=== PATIENT | male | born 1990 | race Caucasian/White ===

== ENCOUNTER 2019-07-19 22:49 | Emergency (ER) | payer OTHER ==
[~2019-07-19] VITALS: Ht 180.3 cm; Wt 81.7 kg
[2019-07-19] MEDS ORDERED: NORCO 5-325 TA1 EAC1 PO (23:25)
[2019-07-19 23:31] VITALS: BP 122/71
== END 2019-07-20 | disposition home or self-care (01) ==
LOC: ER 22:49
DX: S62.314A Displaced fracture of base of fourth metacarpal bone, right hand, initial encounter for closed fracture (principal); F17.210 Nicotine dependence, cigarettes, uncomplicated; W22.01XA Walked into wall, initial encounter; Y92.89 Other specified places as the place of occurrence of the external cause; Y93.89 Activity, other specified; Y99.8 Other external cause status

== ENCOUNTER 2019-11-12 13:50 | Emergency (ER) | payer OTHER ==
[~2019-11-12] VITALS: Ht 180.3 cm; Wt 72.6 kg
[~2019-11-12 13:50] MED LIST: NORCO 5-325 TA1 EAC1 PO
[2019-11-12 13:57] VITALS: BP 117/73
[2019-11-12] MEDS ORDERED: MOBIC7.5 MG PO (15:04)
== END 2019-11-12 15:38 | disposition home or self-care (01) ==
LOC: ER 13:50
DX: M70.841 Other soft tissue disorders related to use, overuse and pressure, right hand (principal); F17.210 Nicotine dependence, cigarettes, uncomplicated; Y92.89 Other specified places as the place of occurrence of the external cause

== ENCOUNTER 2020-01-03 17:47 | Emergency (ER) | payer OTHER ==
[~2020-01-03] VITALS: Ht 180.3 cm; Wt 77.1 kg
[~2020-01-03 17:47] MED LIST changes: +MOBIC7.5 MG PO
[2020-01-03 17:51] VITALS: BP 140/92
[2020-01-03] MEDS ORDERED: KEFLEX500 M1 PO (19:01)
[2020-01-03] MEDS ORDERED: LEVAQUIN 750 M750 MG PO (19:01)
== END 2020-01-03 19:23 | disposition home or self-care (01) ==
LOC: ER 17:47
DX: S91.331A Puncture wound without foreign body, right foot, initial encounter (principal); F17.210 Nicotine dependence, cigarettes, uncomplicated; Z23 Encounter for immunization; W22.8XXA Striking against or struck by other objects, initial encounter; Y93.89 Activity, other specified; Y92.89 Other specified places as the place of occurrence of the external cause; Y99.8 Other external cause status